=== PATIENT | female | born 1960 | race Caucasian/White ===

== ENCOUNTER 2016-12-27 10:52 | Outpatient (CLI) | payer OTHER | END 2016-12-27 10:53 | disposition home or self-care (01) | DX: Z12.31 Encounter for screening mammogram for malignant neoplasm of breast (principal) ==

== ENCOUNTER 2017-01-02 09:00 | Day surgery (SDC) | payer OTHER ==
[2017-01-02] MEDS ORDERED: LACTATED RINGERS 1,000 ML IV ONE (09:45)
[2017-01-02] MEDS ORDERED: fentaNYL 100 MCG/2 ML VIAL IVP ONE (10:55)
[2017-01-02] MEDS ORDERED: MIDAZOLAM 2 MG/2 ML VIAL IVP ONE (10:55)
== END 2017-01-02 09:01 | disposition home or self-care (01) ==
PROC: 0DBL8ZX Excision of Transverse Colon, Via Natural or Artificial Opening Endoscopic, Diagnostic (ICD-10-PCS; 2017-01-02)
PROC: 0DBP8ZX Excision of Rectum, Via Natural or Artificial Opening Endoscopic, Diagnostic (ICD-10-PCS; principal; 2017-01-02 10:30)
DX: Z12.11 Encounter for screening for malignant neoplasm of colon (principal); D12.3 Benign neoplasm of transverse colon; K62.1 Rectal polyp; K64.4 Residual hemorrhoidal skin tags; K64.8 Other hemorrhoids; Z88.0 Allergy status to penicillin; Z88.2 Allergy status to sulfonamides; Z79.4 Long term (current) use of insulin; E11.9 Type 2 diabetes mellitus without complications; E78.5 Hyperlipidemia, unspecified; I10 Essential (primary) hypertension; E66.9 Obesity, unspecified; J45.909 Unspecified asthma, uncomplicated; Z68.34 Body mass index [BMI] 34.0-34.9, adult; Z79.84 Long term (current) use of oral hypoglycemic drugs
CPT/HCPCS: 45380; J7120

== ENCOUNTER 2018-07-03 08:27 | Outpatient (CLI) | payer OTHER ==
[2018-07-03 12:45] LABS: BASOPHILS # (AUTO) 0.1 10^3/uL (0.0-0.1); BASOPHILS % (AUTO) 0.9 %; EOSINOPHILS # (AUTO) 0.4 10^3/uL (0.0-0.7); EOSINOPHILS % (AUTO) 6.6 %; HGB - HEMOGLOBIN 12.9 g/dL (12.0-16.0); LYMPHOCYTES # (AUTO) 1.2 10^3/uL (1.5-3.5); LYMPHOCYTES % (AUTO) 19.6 %; MEAN CORPUSCULAR HEMOGLOBIN 28.8 pg (27.0-31.0); MEAN CORPUSCULAR VOLUME 84.8 fL (81.0-99.0); MEAN PLATELET VOLUME 7.5 fL (7.9-10.8); MONOCYTES # (AUTO) 0.7 10^3/uL (0.0-1.0); MONOCYTES % (AUTO) 12.3 %; NEUTROPHILS # (AUTO) 3.6 10^3/uL (1.5-6.6); NEUTROPHILS % (AUTO) 60.6 %; PLT - PLATELET COUNT 228 10^3/uL (130-450); RED BLOOD COUNT 4.48 10^6/uL (4.20-5.40); RED CELL DISTRIBUTION WIDTH 14.5 % (12.0-15.0); WHITE BLOOD COUNT 5.9 x10^3/uL (4.8-10.8)
[2018-07-03 13:12] LABS: ALBUMIN 4.2 g/dL (3.2-5.5); ALBUMIN/GLOBULIN RATIO 1.4 (1.0-2.2); ALKALINE PHOSPHATASE 49 IU/L (42-121); ALT ALANINE AMINOTRANSFERASE 19 IU/L (10-60); AST ASPARTATE AMINOTRANSFERASE 21 IU/L (10-42); BILIRUBIN,TOTAL 0.6 mg/dL (0.2-1.0); BUN - BLOOD UREA NITROGEN 16 mg/dL (6-20); CALCIUM 9.5 mg/dL (8.5-10.3); CARBON DIOXIDE - CO2 29 mmol/L (21-32); CHLORIDE 102 mmol/L (101-111); CHOL/HDL RATIO 2.5 (<4.4); CHOLESTEROL 106 mg/dL; CREATININE 0.8 mg/dL (0.4-1.0); GFR - MDRD 73 (>89); GLUCOSE 98 mg/dL (70-100); HDL CHOLESTEROL 42 mg/dL; LDL CHOLESTEROL,CALCULATED 44 mg/dL; SODIUM 140 mmol/L (135-145); TOTAL PROTEIN 7.3 g/dL (6.7-8.2); VLDL CHOLESTEROL 20 mg/dL
[2018-07-03 13:13] LABS: THYROID STIMULATING HORMONE 2.75 uIU/mL (0.34-5.60)
[2018-07-03 13:26] LABS: HB2 TOTAL 13.5 g/dL; HEMOGLOBIN A1C 0.75 g/dL; HEMOGLOBIN A1C % 7.2 % (4.6-6.2)
== END 2018-07-03 08:28 | disposition home or self-care (01) ==
LOC: LAB.WCP 08:27
PROVIDERS: ATTEND Physician Assistant
DX: Z00.00 Encounter for general adult medical examination without abnormal findings (principal); Z79.899 Other long term (current) drug therapy; E78.5 Hyperlipidemia, unspecified; E11.9 Type 2 diabetes mellitus without complications
CPT/HCPCS: 36415; 80053; 80061; 82043; 82607; 83036; 83721; 84443; 85025

== ENCOUNTER 2018-11-30 08:47 | Outpatient (CLI) | payer OTHER ==
--- NOTE | 2018-11-30 16:59 | XRAY Report ---
Reason: FOOT PAIN, LEFT Procedure Date: 11/30/2018 Accession Number: [id number] / [id number] Procedure: WCP - Foot 2 View LT CPT Code: FULL RESULT: EXAM: LEFT FOOT RADIOGRAPHY EXAM DATE: 11/30/2018 08:53 AM. CLINICAL HISTORY: Chronic left foot pain. COMPARISON: None. TECHNIQUE: 2 views. FINDINGS: Bones: No traumatic or destructive bone abnormalities identified. Small plantar calcaneal enthesophyte noted. Joints: Degenerative narrowing and spurring at the first TMT joint and first MTP joint. No subluxations. Soft Tissues: Unremarkable. IMPRESSION: 1. Osteoarthritis. 2. Calcaneal enthesophyte. RADIA
== END 2018-11-30 08:48 | disposition home or self-care (01) ==
LOC: DI.WCP 08:47
PROVIDERS: ATTEND Physician Assistant
DX: M19.072 Primary osteoarthritis, left ankle and foot (principal); M77.32 Calcaneal spur, left foot

== ENCOUNTER 2019-10-15 10:15 | Outpatient (CLI) | payer OTHER ==
[2019-10-15 13:12] LABS: BASOPHILS # (AUTO) 0.1 10^3/uL (0.0-0.1); BASOPHILS % (AUTO) 0.9 %; EOSINOPHILS # (AUTO) 0.4 10^3/uL (0.0-0.7); EOSINOPHILS % (AUTO) 6.1 %; HGB - HEMOGLOBIN 13.8 g/dL (12.0-16.0); LYMPHOCYTES # (AUTO) 1.3 10^3/uL (1.5-3.5); LYMPHOCYTES % (AUTO) 22.8 %; MEAN CORPUSCULAR HGB CONC 33.1 g/dL (32.0-36.0); MEAN CORPUSCULAR VOLUME 84.8 fL (81.0-99.0); MEAN PLATELET VOLUME 9.7 fL (7.9-10.8); MONOCYTES # (AUTO) 0.5 10^3/uL (0.0-1.0); MONOCYTES % (AUTO) 9.5 %; NEUTROPHILS # (AUTO) 3.5 10^3/uL (1.5-6.6); NEUTROPHILS % (AUTO) 60.5 %; PLT - PLATELET COUNT 240 10^3/uL (130-450); RED BLOOD COUNT 4.92 10^6/uL (4.20-5.40); RED CELL DISTRIBUTION WIDTH 12.8 % (12.0-15.0); WHITE BLOOD COUNT 5.7 x10^3/uL (4.8-10.8)
[2019-10-15 13:46] LABS: HB2 TOTAL 14.4 g/dL; HEMOGLOBIN A1C 1.45 g/dL; HEMOGLOBIN A1C % 11.4 % (4.6-6.2)
[2019-10-15 14:08] LABS: ALBUMIN 4.7 g/dL (3.2-5.5); ALBUMIN/GLOBULIN RATIO 1.5 (1.0-2.2); ALKALINE PHOSPHATASE 67 IU/L (42-121); ALT ALANINE AMINOTRANSFERASE 26 IU/L (10-60); AST ASPARTATE AMINOTRANSFERASE 21 IU/L (10-42); BILIRUBIN,TOTAL 1.1 mg/dL (0.2-1.0); BUN - BLOOD UREA NITROGEN 19 mg/dL (6-20); CALCIUM 9.4 mg/dL (8.5-10.3); CARBON DIOXIDE - CO2 29 mmol/L (21-32); CHLORIDE 97 mmol/L (101-111); CHOL/HDL RATIO 3.6 (<4.4); CHOLESTEROL 154 mg/dL; CREATININE 0.9 mg/dL (0.4-1.0); GFR - MDRD 64 (>89); GLUCOSE 371 mg/dL (70-100); HDL CHOLESTEROL 43 mg/dL; LDL CHOLESTEROL,CALCULATED 61 mg/dL; LDL/HDL RATIO 1.4 (<4.4); SODIUM 134 mmol/L (135-145); TOTAL PROTEIN 7.8 g/dL (6.7-8.2); VLDL CHOLESTEROL 50 mg/dL
== END 2019-10-15 23:59 | disposition home or self-care (01) ==
LOC: LAB.WCP 10:15
PROVIDERS: ATTEND Nurse Practitioner Family
DX: E11.9 Type 2 diabetes mellitus without complications (principal); E78.5 Hyperlipidemia, unspecified; I10 Essential (primary) hypertension
CPT/HCPCS: 36415; 80053; 80061; 83036; 83721; 84443; 85025

== ENCOUNTER 2019-10-19 11:26 | Outpatient (CLI) | payer OTHER ==
--- NOTE | 2019-10-21 08:50 | Mammography Report ---
Reason: ROUTINE MAMMO Procedure Date: 10/19/2019 Accession Number: [id number] / [id number] Procedure: MGN - Screening Mammo Dig Bilat CPT Code: Final Report FULL RESULT: EXAM: Screening Mammo Dig Bilat DATE: 10/19/2019 11:45 AM CLINICAL HISTORY: The patient is an asymptomatic 59-year-old female. No reported personal or family history of breast cancer. Prior benign right breast biopsy. TECHNIQUE: (B) - Bilateral CC and MLO views were obtained. COMPARISON: 12/27/2016, 06/03/2014, 01/15/2013 and 11/29/2011 PARENCHYMAL PATTERN: (A) - The breasts demonstrate scattered fibroglandular densities bilaterally. FINDINGS: Stable postbiopsy changes in the right breast. The pattern of asymmetry is unchanged. Few scattered benign calcifications. There are no suspicious masses, calcifications, or areas of distortion. IMPRESSION: Benign findings. BI-RADS category 2. RECOMMENDATION: (ANNUAL) - Recommend routine annual screening mammography. BI-RADS CATEGORY: (2) - Benign Findings. STANDARD QUALIFYING STATEMENTS: A negative or benign imaging report should not preclude biopsy if clinically suspicious findings are present. Dense breasts may obscure an underlying neoplasm.
== END 2019-10-19 11:27 | disposition home or self-care (01) ==
LOC: DI.N 11:26
DX: Z12.31 Encounter for screening mammogram for malignant neoplasm of breast (principal)
CPT/HCPCS: 77067

== ENCOUNTER 2020-08-09 13:54 | Outpatient (CLI) | payer OTHER ==
[2020-08-09 18:30] LABS: ALBUMIN 4.4 g/dL (3.2-5.5); ALBUMIN/GLOBULIN RATIO 1.4 (1.0-2.2); BILIRUBIN,TOTAL 0.8 mg/dL (0.2-1.0); CALCIUM 9.5 mg/dL (8.5-10.3); CREATININE 1.2 mg/dL (0.4-1.0); TOTAL PROTEIN 7.6 g/dL (6.7-8.2)
== END 2020-08-09 23:59 | disposition home or self-care (01) ==
LOC: LAB.WCP 13:54
DX: Z51.81 Encounter for therapeutic drug level monitoring (principal)
CPT/HCPCS: 36415; 80053

== ENCOUNTER 2020-10-19 11:31 | Outpatient (CLI) | payer OTHER ==
--- NOTE | 2020-10-19 12:29 | XRAY Report ---
PROCEDURE: Shoulder 3 View RT INDICATIONS: RIGHT SHOULDER PAIN TECHNIQUE: 3 views of the shoulder were acquired. COMPARISON: None. FINDINGS: Bones: No fractures or dislocations. No suspicious bony lesions. Visualized ribs appear intact. Soft tissues: No suspicious soft tissue calcifications. IMPRESSION: No evidence acute bony abnormality of the right shoulder. Reviewed by: Donta Lux MD on 10/19/2020 12:28 PM PST Approved by: Donta Lux MD on 10/19/2020 12:28 PM [facility] Station ID: [id number]
== END 2020-10-19 23:59 | disposition home or self-care (01) ==
LOC: DI.WCP 11:31
PROVIDERS: ATTEND Internal Medicine
DX: M25.511 Pain in right shoulder (principal)

== ENCOUNTER 2020-11-02 10:17 | Outpatient (CLI) | payer OTHER ==
--- NOTE | 2020-11-03 09:55 | Mammography Report ---
BILATERAL DIGITAL SCREENING MAMMOGRAM 3D/2D: 11/02/2020 CLINICAL: Routine screening. Comparison is made to exams dated: 10/19/2019 mammogram, 12/27/2016 mammogram, and 06/03/2014 mammogram - [facility]. There are scattered fibroglandular elements in both breasts. No significant masses, calcifications, or other findings are seen in either breast. There has been no significant interval change. IMPRESSION: NEGATIVE There is no mammographic evidence of malignancy. A 1 year screening mammogram is recommended. This exam was interpreted at Station ID: [id number]. NOTE: For mammograms, a report in lay terms will be sent to the patient. Approximately 15% of breast malignancies will not be visualized mammographically. In the management of a palpable breast mass, a negative mammogram must not discourage biopsy of a clinically suspicious lesion. Electronically Signed By: Onesimo Farrell M.D. ar/[email or web address]:11/02/2020 11:05:46 ACR BI-RADS Category 1: Negative 3341F PARENCHYMAL PATTERN: (A) - The breast(s) demonstrate(s) scattered fibroglandular densities. BI-RADS CATEGORY: (1) - 1 RECOMMENDATION: (ANNUAL) - Recommend routine annual screening mammography. [id number] 1 year screening LATERALITY: (B)
== END 2020-11-02 10:18 | disposition home or self-care (01) ==
LOC: DI.N 10:17
DX: Z12.31 Encounter for screening mammogram for malignant neoplasm of breast (principal)

== ENCOUNTER 2020-11-09 10:23 | Outpatient (CLI) | payer OTHER ==
--- NOTE | 2020-11-09 15:27 | MRI Report ---
PROCEDURE: Shoulder RT W/O INDICATIONS: RT SHOULDER PAIN TECHNIQUE: Noncontrast oblique coronal T2 fast spin echo with fat saturation, oblique sagittal T1 spin echo and T2 fast spin echo with fat saturation, axial T1 spin echo and T2 fast spin echo with fat saturation t hrough the shoulder. COMPARISON: None. FINDINGS: Image quality: Excellent. Rotator cuff: Tendinosis and low-grade articular and bursal surface partial-thickness tear involving distal supraspinatus at its insertion on humeral head is seen extending to musculotendinous junction. Distal infraspinatus and subscapularis tendinosis is seen. No full-thickness rotator cuff tendon rup ture. Very mild supraspinatus muscle atrophy is seen on sagittal images. Bones and bursae: No bone marrow contusions or fractures. Moderate acromioclavicular joint and gleno humeral joint osteoarthritic changes are noted with downward osteophyte formation depressing on muscu lotendinous junction of supraspinatus. The acromion demonstrates conventional anatomy, without an os acromiale. Small amount of joint effusion and subacromial subdeltoid bursal fluid is seen. Capsule and soft tissues: In the absence of intra-articular contrast, there is suggestion of focal s uperior anterior labral tear at 12 to 1:00 position. The glenohumeral ligaments appear intact. The l martell head of the biceps tendinosis is noted. The rotator interval appears normal, without fibrosis. T he coracohumeral ligament is normal in thickness. IMPRESSION: 1. Tendinosis and low-grade articular and bursal surface partial-thickness tear involving distal supr aspinatus extending to musculotendinous junction. Distal infraspinatus and subscapularis tendinosis. No full-thickness rotator cuff tendon rupture. Very mild supraspinatus muscle atrophy. 2. Moderate acromioclavicular joint and glenohumeral joint osteoarthritis. Small amount of joint effu kailyn and subacromial subdeltoid bursal fluid. 3. Suggestion of focal superior anterior labral tear at 12 to 1:00 position. 4. Proximal intra-articular portion of long head of biceps tendinosis. Reviewed by: Hammad Reynaga MD on 11/09/2020 3:26 PM PST Approved by: Hammad Reynaga MD on 11/09/2020 3:26 PM PST Station ID: [id number]
== END 2020-11-09 10:24 | disposition home or self-care (01) ==
LOC: DI 10:23
PROVIDERS: ATTEND Internal Medicine
DX: M19.011 Primary osteoarthritis, right shoulder (principal); M75.101 Unspecified rotator cuff tear or rupture of right shoulder, not specified as traumatic; M75.81 Other shoulder lesions, right shoulder

== ENCOUNTER 2021-01-04 09:08 | Outpatient (CLI) | payer OTHER ==
[2021-01-04 11:39] LABS: BASOPHILS # (AUTO) 0.1 10^3/uL (0.0-0.1); BASOPHILS % (AUTO) 0.9 %; EOSINOPHILS # (AUTO) 0.2 10^3/uL (0.0-0.7); EOSINOPHILS % (AUTO) 3.5 %; HGB - HEMOGLOBIN 13.1 g/dL (12.0-16.0); LYMPHOCYTES # (AUTO) 1.2 10^3/uL (1.5-3.5); LYMPHOCYTES % (AUTO) 18.2 %; MEAN CORPUSCULAR HGB CONC 32.8 g/dL (32.0-36.0); MEAN CORPUSCULAR VOLUME 88.7 fL (81.0-99.0); MEAN PLATELET VOLUME 9.3 fL (7.9-10.8); MONOCYTES # (AUTO) 0.6 10^3/uL (0.0-1.0); MONOCYTES % (AUTO) 9.5 %; NEUTROPHILS # (AUTO) 4.6 10^3/uL (1.5-6.6); NEUTROPHILS % (AUTO) 67.6 %; PLT - PLATELET COUNT 260 10^3/uL (130-450); RED BLOOD COUNT 4.51 10^6/uL (4.20-5.40); RED CELL DISTRIBUTION WIDTH 12.9 % (12.0-15.0); WHITE BLOOD COUNT 6.8 x10^3/uL (4.8-10.8)
[2021-01-04 12:04] LABS: ALBUMIN 5.1 g/dL (3.2-5.5); ALBUMIN/GLOBULIN RATIO 1.6 (1.0-2.2); ALKALINE PHOSPHATASE 64 IU/L (42-121); ALT ALANINE AMINOTRANSFERASE 27 IU/L (10-60); AST ASPARTATE AMINOTRANSFERASE 25 IU/L (10-42); BILIRUBIN,TOTAL 0.8 mg/dL (0.2-1.0); BUN - BLOOD UREA NITROGEN 29 mg/dL (6-20); CALCIUM 10.6 mg/dL (8.5-10.3); CARBON DIOXIDE - CO2 25 mmol/L (21-32); CHLORIDE 104 mmol/L (101-111); CHOL/HDL RATIO 3.5 (<4.4); CHOLESTEROL 149 mg/dL; CREATININE 1.1 mg/dL (0.4-1.0); GFR - MDRD 50 (>89); GLUCOSE 180 mg/dL (70-100); HDL CHOLESTEROL 43 mg/dL; LDL CHOLESTEROL,CALCULATED 66 mg/dL; LDL/HDL RATIO 1.5 (<4.4); POTASSIUM 5.2 mmol/L (3.5-5.0); SODIUM 137 mmol/L (135-145); TOTAL PROTEIN 8.3 g/dL (6.7-8.2); TRIGLYCERIDES 199 mg/dL; VLDL CHOLESTEROL 40 mg/dL
[2021-01-04 12:12] LABS: ESTIMATED AVERAGE GLUCOSE 166 mg/dL (70-100); HEMOGLOBIN A1c% 7.4 % (4.27-6.07)
[2021-01-04 12:14] LABS: THYROID STIMULATING HORMONE 3.72 uIU/mL (0.34-5.60)
[2021-01-04 12:17] LABS: CREATININE,URINE 242.5 mg/dL; MICROALBUM/CREATININE RATIO,UR 51.5 ug/mg (<30.0); MICROALBUMIN,URINE 12.5 mg/dL (0-300.0)
== END 2021-01-04 23:59 | disposition home or self-care (01) ==
LOC: LAB.WCP 09:08
PROVIDERS: ATTEND Internal Medicine
DX: E11.9 Type 2 diabetes mellitus without complications (principal); R19.7 Diarrhea, unspecified
CPT/HCPCS: 36415; 80053; 80061; 81599; 82043; 82570; 83036; 83516; 83630; 83721; 84443; 85025

== ENCOUNTER 2021-07-13 08:00 | Outpatient (CLI) | payer OTHER ==
[2021-07-13 17:49] LABS: HCT - HEMATOCRIT 38.4 % (37.0-47.0); HGB - HEMOGLOBIN 12.1 g/dL (12.0-16.0); MEAN CORPUSCULAR HEMOGLOBIN 28.4 pg (27.0-31.0); MEAN CORPUSCULAR HGB CONC 31.5 g/dL (32.0-36.0); MEAN CORPUSCULAR VOLUME 90.1 fL (81.0-99.0); MEAN PLATELET VOLUME 9.2 fL (7.9-10.8); RED BLOOD COUNT 4.26 10^6/uL (4.20-5.40); RED CELL DISTRIBUTION WIDTH 14.1 % (12.0-15.0); WHITE BLOOD COUNT 8.4 x10^3/uL (4.8-10.8)
[2021-07-13 18:26] LABS: CRP - C-REACTIVE PROTEIN < 1.0 mg/dL (0-1.0)
[2021-07-13 18:27] LABS: URIC ACID 5.8 mg/dL (2.6-7.2)
[2021-07-13 18:44] LABS: RHEUMATOID FACTOR NEGATIVE (Negative)
[2021-07-17 13:31] LABS: DNA (DS) ANTIBODY <1 IU/mL
[2021-07-17 17:22] LABS: CYCLIC CITRULL PEPTIDE CCP IGG <16 UNITS
[2021-07-17 23:11] LABS: ANA SCREEN POSITIVE (NEGATIVE)
== END 2021-07-13 23:59 | disposition home or self-care (01) ==
LOC: LAB.N 08:00
PROVIDERS: ATTEND Family Medicine
DX: M25.571 Pain in right ankle and joints of right foot (principal)
CPT/HCPCS: 36415; 84550; 85027; 85651; 86038; 86140; 86200; 86225; 86430

== ENCOUNTER 2021-07-13 14:36 | Outpatient (CLI) | payer OTHER ==
--- NOTE | 2021-07-13 15:23 | XRAY Report ---
PROCEDURE: Ankle 2 View RT INDICATIONS: RIGHT ANKLE PAIN TECHNIQUE: 2 views of the ankle were acquired. COMPARISON: None FINDINGS: Bones: No fractures or dislocations. Ankle mortise is normally aligned. No suspicious bony lesions . Soft tissues: No tibiotalar joint effusion. Achilles tendon appears normal. IMPRESSION: No visualized acute fracture or dislocation. However, occult injury cannot be excluded. Recommend short interval imaging follow-up in 7-10 days as clinically indicated for additional evalua tion. Reviewed by: Pastora Kiran MD on 07/13/2021 3:22 PM PDT Approved by: Pastora iKran MD on 07/13/2021 3:22 PM PDT Station ID: [id number]
== END 2021-07-13 14:37 ==
LOC: DI.N 14:36
PROVIDERS: ATTEND Family Medicine
DX: M25.571 Pain in right ankle and joints of right foot (principal)

== ENCOUNTER 2021-10-29 10:13 | Outpatient (CLI) | payer OTHER ==
[2021-10-29 11:36] LABS: BASOPHILS # (AUTO) 0.1 10^3/uL (0.0-0.1); BASOPHILS % (AUTO) 1.1 %; EOSINOPHILS # (AUTO) 0.3 10^3/uL (0.0-0.7); EOSINOPHILS % (AUTO) 4.5 %; HCT - HEMATOCRIT 36.7 % (37.0-47.0); HGB - HEMOGLOBIN 12.1 g/dL (12.0-16.0); LYMPHOCYTES # (AUTO) 1.1 10^3/uL (1.5-3.5); LYMPHOCYTES % (AUTO) 17.5 %; MEAN CORPUSCULAR HEMOGLOBIN 28.8 pg (27.0-31.0); MEAN CORPUSCULAR VOLUME 87.4 fL (81.0-99.0); MEAN PLATELET VOLUME 9.3 fL (7.9-10.8); MONOCYTES # (AUTO) 0.7 10^3/uL (0.0-1.0); MONOCYTES % (AUTO) 10.1 %; NEUTROPHILS # (AUTO) 4.3 10^3/uL (1.5-6.6); NEUTROPHILS % (AUTO) 66.2 %; PLT - PLATELET COUNT 222 10^3/uL (130-450); RED CELL DISTRIBUTION WIDTH 13.7 % (12.0-15.0); WHITE BLOOD COUNT 6.5 x10^3/uL (4.8-10.8)
[2021-10-29 11:52] LABS: CREATININE,URINE 199.6 mg/dL; MICROALBUM/CREATININE RATIO,UR 17.5 ug/mg (<30.0); MICROALBUMIN,URINE 3.5 mg/dL (0-300.0)
[2021-10-29 12:17] LABS: ALBUMIN 4.4 g/dL (3.2-5.5); ALBUMIN/GLOBULIN RATIO 1.3 (1.0-2.2); ALKALINE PHOSPHATASE 75 IU/L (42-121); ALT ALANINE AMINOTRANSFERASE 31 IU/L (10-60); AST ASPARTATE AMINOTRANSFERASE 27 IU/L (10-42); BILIRUBIN,TOTAL 0.8 mg/dL (0.2-1.0); BUN - BLOOD UREA NITROGEN 23 mg/dL (6-20); CALCIUM 9.6 mg/dL (8.5-10.3); CARBON DIOXIDE - CO2 28 mmol/L (21-32); CHLORIDE 103 mmol/L (101-111); CHOL/HDL RATIO 3.3 (<4.4); CHOLESTEROL 147 mg/dL; GFR - MDRD 56 (>89); GLUCOSE 92 mg/dL (70-100); HDL CHOLESTEROL 45 mg/dL; LDL CHOLESTEROL,CALCULATED 73 mg/dL; LDL/HDL RATIO 1.6 (<4.4); POTASSIUM 4.7 mmol/L (3.5-5.0); SODIUM 141 mmol/L (135-145); TOTAL PROTEIN 7.8 g/dL (6.7-8.2); TRIGLYCERIDES 146 mg/dL; VLDL CHOLESTEROL 29 mg/dL
[2021-10-29 12:21] LABS: THYROID STIMULATING HORMONE 3.26 uIU/mL (0.34-5.60)
[2021-10-29 12:32] LABS: ESTIMATED AVERAGE GLUCOSE 157 mg/dL (70-100); HEMOGLOBIN A1c% 7.1 % (4.27-6.07)
== END 2021-10-29 23:59 | disposition home or self-care (01) ==
LOC: LAB.WCP 10:13
PROVIDERS: ATTEND Internal Medicine
DX: I10 Essential (primary) hypertension (principal); E11.9 Type 2 diabetes mellitus without complications; F41.9 Anxiety disorder, unspecified; F32.A Depression, unspecified
CPT/HCPCS: 36415; 80053; 80061; 82043; 82570; 83036; 83721; 84443; 85025

== ENCOUNTER 2021-12-29 08:00 | Outpatient (CLI) | payer OTHER ==
--- NOTE | 2021-12-29 17:58 | XRAY Report ---
PROCEDURE: Foot 3 View LT INDICATIONS: LEFT FOOT SPRAIN TECHNIQUE: 3 views of the foot were acquired. COMPARISON: 11/30/2018 FINDINGS: Bones: No fractures or dislocations. No suspicious bony lesions. There have clinical concern is marked laterally. At this site, no findings of fractures or dislocatio ns can be seen. Age-appropriate degenerative changes are seen, which are worst involving the first ray. Plantar and Achilles calcaneal spurs are seen. There were accessory ossicles seen, including an os trigonum and an os tibiale externum. Soft tissues: No tibiotalar joint effusion. Achilles tendon appears normal. IMPRESSION: No acute plain film abnormality can be seen. Degenerative changes can be seen. Incidental note is made of: Accessory ossicles Reviewed by: Tramaine Troncoso MD on 12/29/2021 4:56 PM [facility] Approved by: Tramaine Troncoso MD on 12/29/2021 4:56 PM [facility] Station ID: [id number]
== END 2021-12-29 23:59 ==
LOC: DI.N 08:00
PROVIDERS: ATTEND Nurse Practitioner
DX: S93.692A Other sprain of left foot, initial encounter (principal); M19.072 Primary osteoarthritis, left ankle and foot

== ENCOUNTER 2022-07-11 08:30 | Outpatient (CLI) | payer OTHER ==
--- NOTE | 2022-07-11 14:32 | XRAY Report ---
PROCEDURE: Hips 2V BILAT INDICATIONS: HIP PAIN, LEFT TECHNIQUE: 2 views of the hip were acquired. COMPARISON: None FINDINGS: Bones: No fractures or dislocations. No suspicious bony lesions. The visualized pelvic ring appear s intact. Mild degenerative narrowing of the hips bilaterally. No erosions. Soft tissues: No suspicious soft tissue calcifications or masses. IMPRESSION: Degenerative narrowing of the hips bilaterally. Reviewed by: Pastora Kiran MD on 07/11/2022 2:31 PM PDT Approved by: Pastora Kiran MD on 07/11/2022 2:31 PM PDT Station ID: [id number]
== END 2022-07-11 08:31 | disposition home or self-care (01) ==
LOC: DI.N 08:30
PROVIDERS: ATTEND Internal Medicine
DX: M16.0 Bilateral primary osteoarthritis of hip (principal)

== ENCOUNTER 2022-11-06 14:44 | Outpatient (CLI) | payer OTHER ==
--- NOTE | 2022-11-07 09:27 | Mammography Report ---
BILATERAL DIGITAL SCREENING MAMMOGRAM 3D/2D: 11/06/2022 CLINICAL: Routine screening. Comparison is made to exams dated: 11/02/2020 mammogram, 10/19/2019 mammogram, 12/27/2016 mammogram, 05/14 mammogram, 01/15/2013 mammogram, and 11/29/2011 mammogram - [facility]. There are scattered areas of fibroglandular density in both breasts (category b / 25%-50% glandular t issue). No significant masses, calcifications, or other findings are seen in either breast. There has been no significant interval change. IMPRESSION: NEGATIVE There is no mammographic evidence of malignancy. A 1 year screening mammogram is recommended. Based on the Tyrer Cuzick model (a risk assessment model) the patients lifetime risk is 12.1% and he r 10 year risk is 5.5%. According to the ACR, ACS, and NCCN guidelines, an annual breast MRI exam ian ng with mammogram is recommended if the patients lifetime risk is 20% or greater. This exam was interpreted at Station ID: [id number]. NOTE: For mammograms, a report in lay terms will be sent to the patient. Approximately 15% of breast malignancies will not be visualized mammographically. In the management of a palpable breast mass, a negative mammogram must not discourage biopsy of a clinically suspicious lesion. Electronically Signed By: May de jesus/martinez:11/06/2022 17:15:28 ACR BI-RADS Category 1: Negative 3341F PARENCHYMAL PATTERN: (A) - The breast(s) demonstrate(s) scattered fibroglandular densities. BI-RADS CATEGORY: (1) - 1 RECOMMENDATION: (ANNUAL) - Recommend routine annual screening mammography. [id number] 1 year screening LATERALITY: (B)
== END 2022-11-06 14:45 | disposition home or self-care (01) ==
LOC: DI.N 14:44
DX: Z12.31 Encounter for screening mammogram for malignant neoplasm of breast (principal)

== ENCOUNTER 2023-01-21 10:19 | Outpatient (CLI) | payer OTHER ==
[~2023-01-21 10:19] MED LIST: iohexoL-300 100 ML VIAL ONE
[2023-01-21 10:47] LABS: CREATININE 1.3 mg/dL (0.4-1.0)
--- NOTE | 2023-01-21 12:26 | CT Report ---
PROCEDURE: CT abdomen and pelvis with contrast INDICATIONS: ABD PAIN CONTRAST: Omni 300 100ml TECHNIQUE: After the administration of oral and intravenous contrast, 5 mm thick sections acquired from the diap hragms to the symphysis. 5 mm thick coronal and sagittal reformats were acquired. For radiation dos e reduction, the following was used: automated exposure control, adjustment of mA and/or kV accordin g to patient size. COMPARISON: FINDINGS: Image quality: Excellent. Lung bases and heart: Unremarkable. Liver: Hepatic fatty infiltration without focal mass lesion Gallbladder and biliary tree: Gallbladder wall thickening measures up to 7 mm. Intraluminal calcifica tions is noted layering dependently as well. Spleen: Unremarkable. Pancreas: Peripancreatic phlegmon noted particularly on the pancreatic head and neck. No evidence of organized pseudocyst or abscess. Pancreatic duct unremarkable. Adrenals: Unremarkable. Kidneys and ureters: Unremarkable. Bowel and peritoneum: No bowel distension. No pathologic free fluid. Appendectomy. Several surgical c lips noted in the pelvis. Reproductive Lymph nodes: No central or retroperitoneal adenopathy. Vessels: Unremarkable. PELVIS Reproductive organs: Hysterectomy. Bladder: Unremarkable. Lymph nodes: Unremarkable. Bones: Degenerative disc disease and arthropathy noted in the lumbar spine Other: None. IMPRESSION: Inflammatory change around the head of the pancreas probably reflects mild pancreatitis without absce ss or pseudocyst. Differential would include cholecystitis and duodenitis by location Gallbladder wall thickening is probably reactive. Cholelithiasis noted as well. Hepatic fatty infiltration without focal mass lesion Reviewed by: Peter Raymond MD on 01/21/2023 11:25 AM [facility] Approved by: Peter Raymond MD on 01/21/2023 11:25 AM [facility] Station ID: [id number]
[2023-01-21 13:52] LABS: ALBUMIN 4.5 g/dL (3.2-5.5); ALBUMIN/GLOBULIN RATIO 1.3 (1.0-2.2); BILIRUBIN,TOTAL 1.7 mg/dL (0.2-1.0); CALCIUM 9.6 mg/dL (8.5-10.3); CREATININE 1.3 mg/dL (0.4-1.0); POTASSIUM 3.4 mmol/L (3.5-5.0); TOTAL PROTEIN 8.1 g/dL (6.7-8.2)
[2023-01-21] MEDS ORDERED: DIATRIZOATE MEGLU/DIATRIZO SOD 30 ML BOTTLE PO ONE (13:52)
[2023-01-21] MEDS ORDERED: iohexoL-300 100 ML VIAL IVP ONE (13:53)
== END 2023-01-21 10:20 | disposition home or self-care (01) ==
LOC: LAB 10:19
PROVIDERS: ATTEND Physician Assistant Medical
DX: R10.84 Generalized abdominal pain (principal); K80.20 Calculus of gallbladder without cholecystitis without obstruction; K76.0 Fatty (change of) liver, not elsewhere classified
CPT/HCPCS: 36415; 74177; 80053; 82565; 83690; Q9967

== ENCOUNTER 2023-01-27 08:32 | Outpatient (CLI) | payer OTHER ==
[2023-01-27 12:00] LABS: BASOPHILS # (AUTO) 0.1 10^3/uL (0.0-0.1); BASOPHILS % (AUTO) 1.4 %; EOSINOPHILS # (AUTO) 0.5 10^3/uL (0.0-0.7); EOSINOPHILS % (AUTO) 7.5 %; HCT - HEMATOCRIT 39.9 % (37.0-47.0); LYMPHOCYTES # (AUTO) 1.3 10^3/uL (1.5-3.5); LYMPHOCYTES % (AUTO) 19.7 %; MEAN CORPUSCULAR HEMOGLOBIN 27.9 pg (27.0-31.0); MEAN CORPUSCULAR HGB CONC 32.6 g/dL (32.0-36.0); MEAN CORPUSCULAR VOLUME 85.6 fL (81.0-99.0); MEAN PLATELET VOLUME 9.6 fL (7.9-10.8); MONOCYTES # (AUTO) 0.6 10^3/uL (0.0-1.0); MONOCYTES % (AUTO) 9.8 %; NEUTROPHILS # (AUTO) 3.9 10^3/uL (1.5-6.6); NEUTROPHILS % (AUTO) 61.3 %; PLT - PLATELET COUNT 270 10^3/uL (130-450); RED BLOOD COUNT 4.66 10^6/uL (4.20-5.40); RED CELL DISTRIBUTION WIDTH 13.2 % (12.0-15.0); WHITE BLOOD COUNT 6.4 x10^3/uL (4.8-10.8)
[2023-01-27 13:12] LABS: ALBUMIN 4.4 g/dL (3.2-5.5); ALBUMIN/GLOBULIN RATIO 1.1 (1.0-2.2); BILIRUBIN,TOTAL 0.5 mg/dL (0.2-1.0); CALCIUM 9.8 mg/dL (8.5-10.3); CREATININE 1.2 mg/dL (0.4-1.0); POTASSIUM 3.9 mmol/L (3.5-5.0); TOTAL PROTEIN 8.4 g/dL (6.7-8.2)
== END 2023-01-27 08:33 | disposition home or self-care (01) ==
LOC: LAB.N 08:32
PROVIDERS: ATTEND Physician Assistant Medical
DX: K80.20 Calculus of gallbladder without cholecystitis without obstruction (principal)
CPT/HCPCS: 36415; 80053; 83690; 85025

== ENCOUNTER 2023-03-20 07:53 | Day surgery (SDC) | payer OTHER ==
[~2023-03-20 07:53] MED LIST changes: +CIPROFLOXACIN 400 MG/200 ML 400 MG/200 ML BAG IV ONE; -iohexoL-300 100 ML VIAL ONE
[2023-03-20] MEDS ORDERED: CLINDAMYCIN 900 MG/50 ML 50 ML IV SCH (08:00)
[2023-03-20] MEDS ORDERED: LACTATED RINGERS 1,000 ML IV ONE ×3 (08:18→11:40)
[2023-03-20] MEDS ORDERED: BUPIVACAINE 0.25% PF 30 ML VIAL ONE (08:49)
--- NOTE | 2023-03-20 09:09 | ANESTHESIA ---
Pre-Anesthesia VS, & Labs - Diagnosis gallstone pancreatitis - Procedure lap vipin Vital Signs: Temp Pulse Resp BP Pulse Ox O2 Flow Rate 36.6 C 85 16 172/91 H 99 03/20/23 08:08 03/20/23 08:08 03/20/23 08:08 03/20/23 08:08 03/20/23 08:08 Height: 5 ft 9 in Weight (kg): 100 kg Body Mass Index: 32.5 BMI Classification: Obese - NPO >8 hours - Is Patient ?: No - Lab Results Current Lab Results: Laboratory Tests 03/20/23 08:13: POC Whole Bld Glucose 105 H Home Medications and Allergies Home Medications: Ambulatory Orders Celecoxib [Celebrex] 200 mg PO DAILY 03/14/23 Omeprazole 20 mg PO DAILY 03/14/23 glipiZIDE [Glipizide ER] 2.5 mg PO DAILY 03/14/23 Active Medications Clindamycin Phosphate (Cleocin 900 Mg/50 Ml) 50 mls @ 50 mls/hr IV Q8HR LADAN Atorvastatin Calcium 80 mg PO QPM 01/02/17 Insulin NPH Human Isophane [Humulin N] 40 units SQ BID 01/02/17 Losartan [Cozaar] 100 mg PO DAILY 01/02/17 Sertraline HCl [Zoloft] 100 mg PO DAILY 01/02/17 hydroCHLOROthiazide [Hydrochlorothiazide] 25 mg PO DAILY 01/02/17 metFORMIN [Glucophage] 1,000 mg PO BIDWM 01/02/17 Celecoxib [Celebrex] 200 mg PO DAILY 03/14/23 Omeprazole 20 mg PO DAILY 03/14/23 glipiZIDE [Glipizide ER] 2.5 mg PO DAILY 03/14/23 Allergies/Adverse Reactions: Allergies Allergy/AdvReac Type Severity Reaction Status Date / Time amoxicillin Allergy Hives Verified 01/01/17 13:26 cephalexin Allergy Hives Verified 03/14/23 09:11 chlorhexidine Allergy Hives Verified 03/14/23 09:11 [From ChloraPrep Clear] isopropyl alcohol Allergy Hives Verified 03/14/23 09:11 [From ChloraPrep Clear] latex Allergy Rash Verified 03/14/23 09:11 Penicillins Allergy Hives Verified 01/01/17 13:26 Sulfa (Sulfonamide Allergy Hives Verified 03/14/23 09:11 Antibiotics) lisinopril AdvReac cough Verified 03/14/23 09:11 Anes History & Medical History - Anesthetic History Anesthesia Complications: reports: Other-see comment (pt has aspirated 2x under anesthesia in previous surgeries) Family history of Anesthesia Complications: Denies Family history of Malignant Hyperthermia: Denies - Medical History Cardiovascular: reports: Hypertension, High cholesterol, Murmur, Valve disorder (mild ), Other Pulmonary: reports: Pneumonia Gastrointestinal: reports: GERD, Colon polyps, Chronic diarrhea, Pancreatitis, Other Urinary: reports: None Musculoskeletal: reports: Osteoarthritis Endocrine/Autoimmune: reports: Type 2 diabetes Skin: reports: None Psychosocial: reports: No issues indicated - Surgical History General: reports: Appendectomy, Colonoscopy Eyes Ears Nose Throat (EENT): reports: Tonsil/Adenoidectomy Gynecologic: reports: Hysterectomy, Oophrectomy Orthopedic: reports: Knee replacement, Carpal Tunnel surgery Exam General: Alert, Oriented x3, Cooperative Dental: WNL Mouth Openin Fingerbreadth Neck Mobility: Normal Mallampati classification: II Thyromental Distance: 4-6 cm Respiratory: Lungs clear Cardiovascular: Regular rate Plan Anesthesia Type: General Consent for Procedure(s) Verified and Reviewed: Yes Code Status: Attempt Resuscitation ASA classification: 3-Severe systemic disease Is this case an emergency?: No
--- NOTE | 2023-03-20 09:16 | HISTORY & PHYSICAL EXAMINATION ---
Chief Complaint - Chief Complaint Chief Complaint: here for gallbladder surgery History of Present Illness - History Obtained From Records Reviewed: yes History obtained from: pt Exam Limitations: none - History of Present Illness HPI Comment/Other: gallstone pancreatitis few weeks ago. well now. 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, Oophrectomy HEENT: reports: Tonsil/Adenoidectomy Meds/Allgy - Home Medications Home Medications: Ambulatory Orders Medication Instructions Recorded Confirmed Atorvastatin Calcium 80 mg PO QPM 01/02/17 03/14/23 Insulin NPH Human Isophane 40 units SQ BID 01/02/17 03/14/23 [Humulin N] Losartan [Cozaar] 100 mg PO DAILY 01/02/17 03/14/23 Sertraline HCl [Zoloft] 100 mg PO DAILY 01/02/17 03/14/23 hydroCHLOROthiazide 25 mg PO DAILY 01/02/17 03/14/23 [Hydrochlorothiazide] metFORMIN [Glucophage] 1,000 mg PO BIDWM 01/02/17 03/14/23 Celecoxib [Celebrex] 200 mg PO DAILY 03/14/23 03/14/23 Omeprazole 20 mg PO DAILY 03/14/23 03/14/23 glipiZIDE [Glipizide ER] 2.5 mg PO DAILY 03/14/23 03/14/23 - Allergies Allergies/Adverse Reactions: Allergies Allergy/AdvReac Type Severity Reaction Status Date / Time amoxicillin Allergy Hives Verified 01/01/17 13:26 cephalexin Allergy Hives Verified 03/14/23 09:11 chlorhexidine Allergy Hives Verified 03/14/23 09:11 [From ChloraPrep Clear] isopropyl alcohol Allergy Hives Verified 03/14/23 09:11 [From ChloraPrep Clear] latex Allergy Rash Verified 03/14/23 09:11 Penicillins Allergy Hives Verified 01/01/17 13:26 Sulfa (Sulfonamide Allergy Hives Verified 03/14/23 09:11 Antibiotics) lisinopril AdvReac cough Verified 03/14/23 09:11 Review of Systems - Other Findings Other Findings: 10 pt ros as above otherwise unremarkable Exam - Vital Signs Reviewed Vital Signs: Yes Vital Signs: Vital Signs x48h Temp Pulse Resp BP Pulse Ox 03/20/23 08:08 36.6 C 85 16 172/91 H 99 - Physical Exam General Appearance: positive: No acute distress, Alert Eyes Bilateral: positive: PERRL, EOMI, No scleral icterus ENT: positive: No signs of dehydration Neck: positive: No JVD, Trachea midline Respiratory: positive: No respiratory distress Cardiovascular: positive: Regular rate & rhythm Abdomen: positive: Non-tender, No distention Neurologic/Psychiatric: positive: Oriented x3 Conclusion/Plan - Problem List (1) Gallstone pancreatitis Conclusion/Plan: she is recovered. plan maykel vipin. aleshia held and consent obtained
[2023-03-20] MEDS ORDERED: DEXAMETHASONE 4 MG/ML VIAL ONE (09:24)
[2023-03-20] MEDS ORDERED: PROPOFOL 200 MG/20 ML VIAL IVP ONE ×2 (09:24→10:50)
[2023-03-20] MEDS ORDERED: LIDOCAINE-PF 2% 10 ML AMP SUBQ ONE (09:24)
[2023-03-20] MEDS ORDERED: MIDAZOLAM 2 MG/2 ML VIAL ONE (09:24)
[2023-03-20] MEDS ORDERED: ONDANSETRON 4 MG/2 ML VIAL ONE (09:24)
[2023-03-20] MEDS ORDERED: ROCURONIUM 50 MG/5 ML VIAL ONE (09:24)
[2023-03-20] MEDS ORDERED: fentaNYL 100 MCG/2 ML VIAL ONE ×2 (09:24→11:35)
[2023-03-20] MEDS ORDERED: ePHEDrine 50 MG/ML VIAL IVP ONE (10:10)
[2023-03-20] MEDS ORDERED: BUPIVACAINE 0.25% PF 30 ML VIAL SUBQ ONE ×2 (10:18)
[2023-03-20] MEDS ORDERED: NALOXONE 0.4 MG/ML VIAL IVP PRN (10:30)
[2023-03-20] MEDS ORDERED: ATROPINE ABBOJECT 1 MG/10 ML SYRINGE IVP PRN (10:30)
[2023-03-20] MEDS ORDERED: HYDROmorphone 0.5 MG/0.5 ML SYRINGE IVP PRN ×2 (10:30→11:01)
[2023-03-20] MEDS ORDERED: ePHEDrine 50 MG/ML VIAL IVP PRN (10:30)
[2023-03-20] MEDS ORDERED: ONDANSETRON 4 MG/2 ML VIAL IVP PRN ×2 (10:30→11:01)
[2023-03-20] MEDS ORDERED: MORPHINE 2 MG/ML CARPUJECT IVP PRN (10:30)
[2023-03-20] MEDS ORDERED: KETOROLAC 30 MG/ML VIAL ONE (10:31)
[2023-03-20] MEDS ORDERED: SUGAMMADEX 200 MG/2 ML VIAL IVP ONE (10:45)
[2023-03-20] MEDS ORDERED: LACTATED RINGERS 1,000 ML IV SCH (11:00)
[2023-03-20] MEDS ORDERED: HYDROcod/ACETAM 5/325 MG TABLET PO PRN (11:01)
--- NOTE | 2023-03-20 11:06 | OPERATIVE REPORT ---
Operative Report - General Procedure Date: 03/20/23 Planned Procedure: lap vipin Pre-Op Diagnosis: hx gallstone pancreatitis Procedure Performed: lap vipin Post Op Diagnosis: hx gallstone pancreatitis and chronic cholecystitis - Procedure Note Primary Surgeon: cheo gonzalez Anesthesia Technique: General ET tube, Local Pathology: gallbladder Estimated Blood Loss (mL): 2 Drain/Tube Type: Other (none) Indications: as above Findings: as above Complications: none - Other Other Information/Narrative: The patient was properly identified, brought to the operating room and placed in supine position. Sequential compression devices were placed. General endotracheal anesthesia was induced. The patient was prepped and draped in a sterile fashion and given preoperative antibiotics. Local anesthetic was given to incision areas. An incision was made in the periumbilical area. Dissection proceeded down to fascia. The fascia was incised lifted upwards and abdomen entered with a Veress needle. CO2 was insufflated to a pressure of 15. An 11 mm trocar followed by a 30 degree scope was placed. There was no evidence of injury from Veress needle or trocar placement. Under direct vision 2 5 mm trochars were placed in the right upper quadrant and an 11 mm trocar was placed in the epigastrium. Body of the gallbladder was retracted anterior. Lateral a ttachments were partially taken down further mobilizing the gallbladder more anterior and away from the duodenum. The infundibulum of the gallbladder was then retracted right lateral and caudad. With minimal use of cautery a large bare cystic plate area or window was carefully created. The cystic duct was inspected from right lateral and left lateral positions. [] The cystic duct was then clipped at the gallbladder and 3 times slightly proximal and sharply divided. The cystic artery was clipped at the gallbladder and then 2 times slightly proximal and sharply divided. The gallbladder was mobilized off from the bed of the liver with hook cautery. The gallbladder was placed in Endo Catch bag and brought out through the epigastric trocar site. Hemostasis was assured. Trochars were removed under direct vision. Fascia at the larger trocar sites was closed with [id number] are running 0 Vicryl suture. Subcutaneous tissue was irrigated and skin closed with interrupted 4-0 Monocryl. Dressings were applied. Patient tolerated the procedure well was awakened and brought to recovery in good condition.
[2023-03-20] MEDS: HYDROmorphone 1 MG/ML CARPUJECT ONE ×3 (11:20→11:57)
[2023-03-20] MEDS: fentaNYL 100 MCG/2 ML VIAL IVP PRN ×3 (11:29→11:40)
[2023-03-20] MEDS ORDERED: HYDROmorphone 1 MG/ML CARPUJECT ONE (11:34)
[2023-03-20] MEDS ORDERED: HYDROcod/ACETAM 5/325 MG TABLET ONE (12:26)
[2023-03-20 12:51] VITALS: BP 134/67
--- NOTE | 2023-03-20 17:02 | ANESTHESIA POST OP EVALUATION ---
Anesthesia Post Eval - Post Anesthesia Eval Vitals: Last Vital Signs Temp 36.8 C 03/20/23 12:48 Pulse 82 03/20/23 12:48 Resp 14 03/20/23 12:48 BP 134/67 H 03/20/23 12:48 Pulse Ox 98 03/20/23 12:48 O2 Flow Rate CV Function Including HR & BP: Stable Pain Control: Satisfactory Nausea & Vomiting: Negative Mental Status: Baseline Respiratory Status: Airway Patent Hydration Status: Satisfactory Anesthesia Complications: None
== END 2023-03-20 07:54 | disposition home or self-care (01) ==
LOC: SDS 07:53
PROVIDERS: ATTEND Surgery
PROC: 0FT44ZZ Resection of Gallbladder, Percutaneous Endoscopic Approach (ICD-10-PCS; principal; 2023-03-20 09:00)
DX: K80.10 Calculus of gallbladder with chronic cholecystitis without obstruction (principal); E66.9 Obesity, unspecified; Z68.32 Body mass index [BMI] 32.0-32.9, adult; E11.9 Type 2 diabetes mellitus without complications; Z79.84 Long term (current) use of oral hypoglycemic drugs; Z79.4 Long term (current) use of insulin
CPT/HCPCS: 47562; A9270; J1170; J7120

== ENCOUNTER 2023-08-19 18:49 | Outpatient (CLI) | payer OTHER ==
--- NOTE | 2023-08-20 09:54 | XRAY Report ---
PROCEDURE: Ribs 3 View BILAT INDICATIONS: RIB PAIN,LEFT SIDED TECHNIQUE: 2 views of the left ribs and an AP view of the chest were acquired. COMPARISON: None. FINDINGS: Surgical changes and devices: None. Bones and chest wall: There is a mildly displaced anterolateral left ninth rib fracture. No suspicio us bony lesions. Overlying soft tissues appear unremarkable. Lungs and pleura: Normal heights size. Lungs are clear. No pneumothorax or pleural fluid noted. IMPRESSION: 1. Mildly displaced left anterolateral ninth rib fracture. 2. No underlying pulmonary abnormality. Reviewed by: Donta Lux MD on 08/20/2023 9:52 AM PST Approved by: Donta Lux MD on 08/20/2023 9:52 AM PST Station ID: [id number]
== END 2023-08-19 18:50 | disposition home or self-care (01) ==
LOC: DI 18:49
PROVIDERS: ATTEND Nurse Practitioner
DX: S22.32XA Fracture of one rib, left side, initial encounter for closed fracture (principal)

== ENCOUNTER 2024-01-16 14:58 | Outpatient (CLI) | payer OTHER ==
--- NOTE | 2024-01-19 09:20 | Mammography Report ---
BILATERAL DIGITAL SCREENING MAMMOGRAM 3D/2D: 01/16/2024 CLINICAL: Routine screening. Comparison is made to exams dated: 11/06/2022 mammogram, 11/02/2020 mammogram, 10/19/2019 mammogram, 12/11 mammogram, and 06/03/2014 mammogram - [facility]. There are scattered areas of fibroglandular density in both breasts (category b / 25%-50% glandular t issue). No significant masses, calcifications, or other findings are seen in either breast. There has been no significant interval change. IMPRESSION: NEGATIVE There is no mammographic evidence of malignancy. A 1 year screening mammogram is recommended. Based on the Tyrer Cuzick model (a risk assessment model) the patient's lifetime risk is 11.7% and he r 10 year risk is 5.5%. According to the ACR, ACS, and NCCN guidelines, an annual breast MRI exam ian ng with mammogram is recommended if the patient's lifetime risk is 20% or greater. This exam was interpreted at Station ID: [id number]. NOTE: For mammograms, a report in lay terms will be sent to the patient. Approximately 15% of breast malignancies will not be visualized mammographically. In the management of a palpable breast mass, a negative mammogram must not discourage biopsy of a clinically suspicious lesion. Electronically Signed By: Tiffany infante/martinez:01/16/2024 17:30:01 letter sent: No_Letter ACR BI-RADS Category 1: Negative 3341F PARENCHYMAL PATTERN: (A) - The breast(s) demonstrate(s) scattered fibroglandular densities. BI-RADS CATEGORY: (1) - 1 RECOMMENDATION: (ANNUAL) - Recommend routine annual screening mammography. [id number] 1 year screening LATERALITY: (B)
== END 2024-01-16 14:59 | disposition home or self-care (01) ==
LOC: DI 14:58
PROVIDERS: ATTEND Internal Medicine
DX: Z12.31 Encounter for screening mammogram for malignant neoplasm of breast (principal); R92.323 Mammographic fibroglandular density, bilateral breasts

== ENCOUNTER 2024-03-17 08:00 | Outpatient (CLI) | payer OTHER ==
[2024-03-17 11:49] LABS: BASOPHILS # (AUTO) 0.1 10^3/uL (0.0-0.1); BASOPHILS % (AUTO) 1.5 %; EOSINOPHILS # (AUTO) 0.3 10^3/uL (0.0-0.7); EOSINOPHILS % (AUTO) 5.4 %; HCT - HEMATOCRIT 40.9 % (37.0-47.0); HGB - HEMOGLOBIN 13.2 g/dL (12.0-16.0); LYMPHOCYTES % (AUTO) 17.1 %; MEAN CORPUSCULAR HEMOGLOBIN 27.5 pg (27.0-31.0); MEAN CORPUSCULAR HGB CONC 32.3 g/dL (32.0-36.0); MEAN CORPUSCULAR VOLUME 85.2 fL (81.0-99.0); MEAN PLATELET VOLUME 9.6 fL (7.9-10.8); MONOCYTES # (AUTO) 0.7 10^3/uL (0.0-1.0); MONOCYTES % (AUTO) 10.9 %; NEUTROPHILS # (AUTO) 3.9 10^3/uL (1.5-6.6); NEUTROPHILS % (AUTO) 64.8 %; PLT - PLATELET COUNT 263 10^3/uL (130-450); RED CELL DISTRIBUTION WIDTH 13.5 % (12.0-15.0)
[2024-03-17 12:16] LABS: ALBUMIN 4.9 g/dL (3.2-5.5); ALBUMIN/GLOBULIN RATIO 1.5 (1.0-2.2); ALKALINE PHOSPHATASE 73 IU/L (42-121); ALT ALANINE AMINOTRANSFERASE 16 IU/L (10-60); AST ASPARTATE AMINOTRANSFERASE 25 IU/L (10-42); BILIRUBIN,TOTAL 0.7 mg/dL (0.2-1.0); BUN - BLOOD UREA NITROGEN 43 mg/dL (6-20); CALCIUM 10.8 mg/dL (8.5-10.3); CARBON DIOXIDE - CO2 33 mmol/L (21-32); CHLORIDE 97 mmol/L (101-111); CHOL/HDL RATIO 2.3 (<4.4); CHOLESTEROL 82 mg/dL; CREATININE 1.3 mg/dL (0.6-1.3); GFR - MDRD 41 (>89); GLUCOSE 88 mg/dL (74-104); HDL CHOLESTEROL 35 mg/dL; LDL CHOLESTEROL,CALCULATED 25 mg/dL; LDL/HDL RATIO 0.7 (<4.4); POTASSIUM 3.9 mmol/L (3.5-4.5); SODIUM 138 mmol/L (135-145); TOTAL PROTEIN 8.1 g/dL (6.4-8.9); TRIGLYCERIDES 108 mg/dL (48-352); VLDL CHOLESTEROL 22 mg/dL
[2024-03-17 12:32] LABS: CREATININE,URINE 147.3 mg/dL; MICROALBUM/CREATININE RATIO,UR 25.8 ug/mg (<30.0); MICROALBUMIN,URINE 3.8 mg/dL
[2024-03-17 12:49] LABS: THYROID STIMULATING HORMONE 2.69 uIU/mL (0.34-5.60)
[2024-03-17 13:24] LABS: ESTIMATED AVERAGE GLUCOSE 126 mg/dL (70-100)
== END 2024-03-17 08:01 | disposition home or self-care (01) ==
LOC: LAB.N 08:00
PROVIDERS: ATTEND Internal Medicine
DX: E11.9 Type 2 diabetes mellitus without complications (principal); E78.5 Hyperlipidemia, unspecified; K52.832 Lymphocytic colitis; F41.9 Anxiety disorder, unspecified; F32.A Depression, unspecified
CPT/HCPCS: 36415; 80053; 80061; 82043; 82570; 83036; 83721; 84443; 85025